=== PATIENT | male | born 1965 | race American Indian/Alaskan Native ===

== ENCOUNTER 2019-12-20 10:25 | Outpatient (CLI) | payer OTHER ==
--- NOTE | 2019-12-20 12:32 | Cat Scan Report ---
CT cervical spine wo con INDICATION / CLINICAL INFORMATION: 54 years Male; M54.2 NECK PAIN. TECHNIQUE: Axial CT images of the cervical spine were obtained. Sagittal and coronal reformatted images were pr oduced. All CT scans at this location are performed using CT dose reduction for ALARA by means of aut omated exposure control. COMPARISON: None available. FINDINGS: POST-SURGICAL CHANGES: None. ALIGNMENT: Normal cervical lordosis seen without significant scoliosis. VERTEBRAE: No signs of fracture. Vertebral bodies are grossly normal in height throughout. There is osseous foraminal narrowing on the left at C3-4 from uncinate and facet hypertrophy. Similar findings seen at C4-5 bilaterally and on the left at C5-6. Mild, multilevel facet hypertrophy noted. INTRAVERTEBRAL DISCS: Mild disc space narrowing seen at C5-6 and C4-5. Minimal disc disease seen at v arious levels without dominant herniation. No definitive signs of significant canal stenosis. PARASPINAL SOFT TISSUES: No significant abnormality. ADDITIONAL FINDINGS: None. IMPRESSION: 1. Mild degenerative changes of the cervical spine as described above. No single, dominant cause for patient's symptomatology appreciated. Signer Name: Ghassan Comer MD, III Signed: 12/20/2019 12:28 PM Workstation Name: [id number]
== END 2019-12-20 10:26 | disposition home or self-care (01) ==
LOC: CT 10:25
DX: M47.812 Spondylosis without myelopathy or radiculopathy, cervical region (principal); M48.02 Spinal stenosis, cervical region
CPT/HCPCS: 72125